=== PATIENT | female | born 1955 | race Caucasian/White ===

== ENCOUNTER 2021-05-06 12:46 | Outpatient (CLI) | payer OTHER, SELFPAY ==
--- NOTE | 2021-05-06 13:11 | MM_ITS ---
WS: [id number] BILATERAL DIGITAL SCREENING MAMMOGRAPHY WITH CAD CLINICAL INFORMATION: SCREENING HISTORY: Screening mammogram. No current complaints. COMPARISON: May 06, 2018 TECHNIQUE: Bilateral CC and MLO views. FINDINGS: The breasts are composed of heterogeneous fibroglandular density tissue, which can limit the detectio n of small underlying mass lesions. Punctate, clustered, and lucent centered calcifications. Eggshell calcifications. Vascular calcifications. Stable heterogeneous breast tissue upper outer breasts bila terally left greater than right. No suspicious mass, asymmetry, calcifications, or architectural dist ortion. No evidence of malignancy. MM/[place] [id number] IMPRESSION: BI-RADS: 2-Benign FOLLOW UP: 1 Year Follow-up Recommend return to annual screening mammography.
== END 2021-05-06 12:47 | disposition home or self-care (01) ==
LOC: RADSHAW 12:52
PROVIDERS: PCP Internal Medicine; Visit Provider Family Medicine
DX: Z12.31 Encounter for screening mammogram for malignant neoplasm of breast (principal)
CPT/HCPCS: 77067

== ENCOUNTER 2022-03-14 18:21 | Outpatient (CLI) | payer OTHER, SELFPAY ==
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
== END 2022-03-14 18:22 | disposition home or self-care (01) ==
PROVIDERS: PCP Internal Medicine; Visit Provider Internal Medicine
DX: S09.90XA Unspecified injury of head, initial encounter (principal); W22.8XXA Striking against or struck by other objects, initial encounter
CPT/HCPCS: 70260

== ENCOUNTER → 2022-10-31 08:40 | Outpatient (BNVA) | payer MEDICARE, OTHER, SELFPAY | PROVIDERS: PCP Internal Medicine; Visit Provider Orthopaedic Surgery | DX: S50.12XA Contusion of left forearm, initial encounter (principal); W01.0XXA Fall on same level from slipping, tripping and stumbling without subsequent striking against object, initial encounter | CPT/HCPCS: 73080; 99203 ==

== ENCOUNTER 2022-11-12 15:20 | Outpatient (RCR) | payer MEDICARE, OTHER, SELFPAY | END 2022-11-25 23:59 | disposition home or self-care (01) | LOC: SOT 15:20 | PROVIDERS: PCP Internal Medicine; Visit Provider Orthopaedic Surgery | DX: M25.622 Stiffness of left elbow, not elsewhere classified (principal) | CPT/HCPCS: 97022; 97110; 97166 ==

== ENCOUNTER 2022-11-26 06:00 | Outpatient (RCR) | payer MEDICARE, OTHER, SELFPAY | END 2022-12-24 23:59 | disposition home or self-care (01) | LOC: SOT 06:00 | PROVIDERS: PCP Internal Medicine; Visit Provider Orthopaedic Surgery | DX: M25.622 Stiffness of left elbow, not elsewhere classified (principal) | CPT/HCPCS: 97022; 97110; 99213 ==

== ENCOUNTER → 2023-07-12 13:50 | Outpatient (BNVA) | payer MEDICARE, OTHER, SELFPAY | PROVIDERS: PCP Internal Medicine; Visit Provider Family Medicine | DX: R05.9 Cough, unspecified (principal); J06.9 Acute upper respiratory infection, unspecified; Z20.822 Contact with and (suspected) exposure to COVID-19 | CPT/HCPCS: 87400; 87426 ==

== ENCOUNTER 2023-08-21 10:06 | Emergency (ER) | payer MEDICARE, OTHER, SELFPAY ==
[2023-08-21 10:24] VITALS: BP 212/104; PULSE 76; RESP 18; TEMP 36.8; O2SAT 99
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
[2023-08-21] MEDS: dexamethasone 10 mg/mL INJ IM (13:49)
[2023-08-21] MEDS: orphenadrine 30 mg/mL Inj 2 mL 60 MG IVP (13:49)
== END 2023-08-21 13:50 | disposition home or self-care (01) ==
PROVIDERS: Emergency Provider Family Medicine; PCP Internal Medicine
DX: M54.2 Cervicalgia (principal)
CPT/HCPCS: 96372; 96374; 99284; J1100; J2360

== ENCOUNTER → 2023-11-17 18:19 | Outpatient (BNVA) | payer MEDICARE, OTHER, SELFPAY | PROVIDERS: PCP Internal Medicine; Visit Provider Emergency Medicine | DX: Z20.828 Contact with and (suspected) exposure to other viral communicable diseases (principal) | CPT/HCPCS: 87400 ==

== ENCOUNTER → 2023-12-06 13:44 | Outpatient (BNVA) | payer MEDICARE, OTHER, SELFPAY | PROVIDERS: PCP Internal Medicine; Visit Provider Emergency Medicine | DX: R39.9 Unspecified symptoms and signs involving the genitourinary system (principal) | CPT/HCPCS: 81000; 87086 ==

== ENCOUNTER → 2024-03-02 13:56 | Outpatient (BNVA) | payer MEDICARE, OTHER, SELFPAY | PROVIDERS: PCP Internal Medicine; Visit Provider Family Medicine | DX: G89.29 Other chronic pain (principal); E03.9 Hypothyroidism, unspecified; M54.2 Cervicalgia; M54.9 Dorsalgia, unspecified | CPT/HCPCS: 80053; 84439; 84443; 85025 ==

== ENCOUNTER → 2024-03-11 10:34 | Outpatient (BNVA) | payer MEDICARE, OTHER, SELFPAY | PROVIDERS: PCP Internal Medicine; Referring Provider Family Medicine; Visit Provider Surgery | DX: K21.9 Gastro-esophageal reflux disease without esophagitis (principal); Z12.11 Encounter for screening for malignant neoplasm of colon | CPT/HCPCS: 99204 ==

== ENCOUNTER 2024-03-28 13:18 | Outpatient (CLI) | payer MEDICARE, OTHER, SELFPAY ==
--- NOTE | 2024-03-28 13:45 | MR_ITS ---
WS: [id number] MRI CERVICAL SPINE NONCONTRAST HISTORY: acute injury 08/20, failed PT COMPARISON: None available. Technique: Multiplanar, multisequence noncontrast imaging of the cervical spine. Very slight increase in the cervical lordosis. No acute fracture. There is increased T2 signal in the T1 vertebral body which is probably hemangioma. Facet joints are normally aligned. No marrow edema. Normal signal within the cord. Signal within the cervical cord is normal. Visualized posterior fossa is unremarkable. Craniocervical junction, C1 and C2 relationship, odontoid process and soft tissues are normal. C2-C3: Normal. C3-C4: Moderate RIGHT foraminal stenosis. There is probably a small disc osteophyte complex. The exac t cause of the stenosis is difficult to determine. Normal LEFT foramen. C4-C5: Normal. C5-C6: Normal. C6-C7: Normal. C7-T1: Normal. Paraspinal soft tissue are normal. MR/MR cervical spin wo con* [id number] IMPRESSION: 1. No acute cervical spine fracture. 2. No central stenosis. 3. Moderate RIGHT foraminal stenosis at C3-4. The exact cause is difficult to determine. There is probably facet disease and possible disc disease.
== END 2024-03-28 13:19 | disposition home or self-care (01) ==
PROVIDERS: PCP Family Medicine; Visit Provider Family Medicine
DX: M99.61 Osseous and subluxation stenosis of intervertebral foramina of cervical region (principal); M40.50 Lordosis, unspecified, site unspecified
CPT/HCPCS: 72141

== ENCOUNTER 2024-04-26 21:32 | Emergency (ER) | payer MEDICARE, OTHER, SELFPAY ==
[2024-04-26 21:44] VITALS: BP 214/101; PULSE 71; RESP 16; TEMP 36.6; O2SAT 99
[2024-04-26 21:54] VITALS: BP 185/100; PULSE 78; O2SAT 97
--- NOTE | 2024-04-26 22:40 | XRR_ITS ---
PROCEDURE INFORMATION: Exam: XR Chest Exam date and time: 04/26/2024 10:46 PM Age: 68 years old Clinical indication: Angina; Additional info: Epigastric pain TECHNIQUE: Imaging protocol: Radiologic exam of the chest. Views: 1 view. COMPARISON: CR XR ribs RT mn 3V w CXR1V [id number] 09/07/2023 11:47 AM FINDINGS: Lungs: Unremarkable. No consolidation. Pleural spaces: Unremarkable. No pleural effusion. No pneumothorax. Heart/Mediastinum: Unremarkable. No cardiomegaly. Bones/joints: Unremarkable. XR/XR chest 1V portable [id number] IMPRESSION: No acute findings.
--- NOTE | 2024-04-26 22:40 | ECG_ITS ---
[facility] Test Date: 2024-04-26 Pat Name: Elicia Jaquez Department: Room: Gender: Female [employer] Hunter: : 1955 Requested By: Milan Chau Order Number: [id number] Lazaro MD: Ana Zamora M.D. Measurements Intervals [place] Rate: 65 P: 57 FL: 149 QRS: 37 QRSD: 73 T: 50 QT: 377 QTc: 394 Interpretive Statements SINUS RHYTHM POSSIBLE LEFT ATRIAL ENLARGEMENT [-0.1mV P-WAVE IN V1/V2] No previous ECG available for comparison Electronically Signed On 04-27-2024 6:27:47 CDT by Ana Zamora M.D. [email or web address]
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
[2024-04-26] MEDS: ondansetron 2 mg/ML SDV 2 mL 4 MG IVP (23:25)
[2024-04-26] MEDS: sodium chloride 0.9% 1,000 ML 999 ML IV (23:26)
[2024-04-26 23:32] VITALS: BP 188/90; PULSE 72; O2SAT 98
[2024-04-26 23:45] LABS: Basophils % 0.3 %; Eosinophils # 0.1 10^3/uL (0.0-0.8); Eosinophils % 0.8 %; Hematocrit 43.7 % (36-47); Lymphocytes # 2.6 10^3/uL (0.8-4.8); Lymphocytes % 20.9 %; Mean Corpuscular HGB Conc 33.4 g/dL (30-55); Mean Corpuscular Hemoglobin 32.1 pg (27-33); Mean Platelet Volume 10.3 fL (7.4-10.4); Monocytes # 0.9 10^3/uL (0.2-0.9); Monocytes % 7.4 %; Neutrophils # 8.52 10^3/uL (1.8-7.7); Neutrophils % 69.5 %; Nucleated Red Blood Cells % 0 %; Platelet Count 241 10^3/cmm (157-399); Red Blood Count 4.55 10^6/uL (3.85-5.65); Red Cell Distribution Width 12.5 % (12.1-15.1); White Blood Count 12.26 10^3/uL (3.29-11.43)
[2024-04-26 23:47] LABS: Charge for UA Resulting for Rev
[2024-04-27 00:02] LABS: Troponin(5th) Baseline 26 ng/L (0-10)
[2024-04-27 00:03] LABS: Alanine Aminotransferase 29 U/L (0-33); Albumin Level 4.6 g/dL (3.5-5.2); Alkaline Phosphatase 114 U/L (35-105); Aspartate Amino Transferase 18 U/L (0-32); Blood Urea Nitrogen 18 mg/dL (8-23); Calcium 8.9 mg/dL (8.5-10.5); Carbon Dioxide 25 mmol/L (22-29); Chloride 101 mmol/L (98-107); Creatinine Clr Calc Pharmacy 46.0655; Globulin 2.1 g/dL (1.3-4.6); Glomerular Filtration Rate 83.7 mL/min (90-130); Glucose 107 mg/dL (65-115); Lipase 38 U/L (13-60); Osmolality Calculated 288 mOsm/kg (285-295); Sodium 138 mmol/L (136-145); Total Bilirubin 0.4 mg/dL (0.15-1.2); Total Protein 6.7 g/dL (6.6-8.7)
[2024-04-27 00:07] LABS: Bilirubin Urine Negative (Negative); Blood Urine Negative (Negative); Glucose Urine UA Negative (Normal); Ketones Urine Negative (Negative); Leukocyte Esterase Urine Negative (Negative); Nitrate Urine Negative (Negative); Protein Urine Negative (Negative); Specific Gravity, Urine 1.008 (1.005-1.030); Urine Appearance Clear (CLEAR); Urine Color Yellow (Yellow); Urobilinogen Urine 0.2 mg/dL (Negative)
[2024-04-27] MEDS: cloNIDine 0.1 mg Tablet PO (00:39)
[2024-04-27] MEDS: lidocaine 2% viscous 15 ML, aluminum-mag hydrox-simethicon 30 ML, sucralfate oral liq 1 GM PO (00:41)
--- NOTE | 2024-04-27 00:46 | ECG_ITS ---
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 Measurements Intervals [place] Rate: 65 P: 54 LA: 146 QRS: 27 QRSD: 86 T: 49 QT: 382 QTc: 399 Interpretive Statements SINUS RHYTHM Poor R wave progression POSSIBLE LEFT ATRIAL ENLARGEMENT [-0.1mV P-WAVE IN V1/V2] MODERATE ST DEPRESSION [0.05+ mV ST DEPRESSION] Compared to ECG 04/26/2024 23:09:41 ST (T wave) deviation now present Electronically Signed On 04-27-2024 6:38:13 CDT by Ana Zamora M.D. [id number]
[2024-04-27 01:03] VITALS: BP 180/93; PULSE 77; O2SAT 98
--- NOTE | 2024-04-27 01:03 | CTR_ITS ---
PROCEDURE INFORMATION: Exam: CT Abdomen And Pelvis With Contrast Exam date and time: 04/27/2024 1:37 AM Age: 68 years old Clinical indication: Abdominal pain; Epigastric; Prior surgery; Surgery date: 6+ months; Surgery type: Appy, stomach, c section; Additional info: Epigastric pain/elevated BP TECHNIQUE: Imaging protocol: Computed tomography of the abdomen and pelvis with contrast. Radiation optimization: All CT scans at this facility use at least one of these dose optimization techniques: automated exposure control; mA and/or kV adjustment per patient size (includes targeted exams where dose is matched to clinical indication); or iterative reconstruction. Contrast material: OMNIPAQUE 350; Contrast volume: 80 ml; Contrast route: INTRAVENOUS (IV); COMPARISON: CR XR hip RT 2-3V wo/w pel* [id number] 10/21/2023 8:43 AM RADIATION DOSE METRICS: Total DLP (mGy-cm): 292.15 FINDINGS: Liver: Normal. No mass. Gallbladder and biliary ducts: Normal. No calcified stones. No ductal dilation. Pancreas: Normal. No ductal dilation. Spleen: Normal. No splenomegaly. Adrenal glands: Normal. No mass. Kidneys and ureters: Normal. No hydronephrosis. Stomach and bowel: Unremarkable. No obstruction. No mucosal thickening. Appendix: The appendix is not visualized but there are no secondary signs of acute appendicitis. Intraperitoneal space: Unremarkable. No free air. No significant fluid collection. Vasculature: Unremarkable. No abdominal aortic aneurysm. Lymph nodes: Unremarkable. No enlarged lymph nodes. Urinary bladder: Unremarkable as visualized. Reproductive: Unremarkable as visualized. Bones/joints: Unremarkable. No acute fracture. Soft tissues: Unremarkable. CT/CT abdomen pelvis w con* [id number] IMPRESSION: 1. No bowel obstruction or inflammatory process associated with the bowel. 2. No free air or significant free fluid in the abdomen or pelvis. 3. The appendix is not visualized but there are no secondary signs of acute appendicitis.
[2024-04-27] MEDS: iohexol 350 mg/mL 500 mL Btl (per mL) IV (01:47)
[2024-04-27 01:55] VITALS: BP 134/76; O2SAT 97
[2024-04-27 02:59] VITALS: BP 153/86; PULSE 69; O2SAT 98
[2024-04-27 02:59] LABS: Troponin 5 2HR 27.43 ng/L (0-10); Troponin 5 2HR Delta 1.43 ABS# (0-10)
[2024-04-27 03:41] VITALS: BP 146/88; PULSE 88; O2SAT 100
== END 2024-04-27 03:44 | disposition home or self-care (01) ==
PROVIDERS: Emergency Provider Physician Assistant; PCP Family Medicine
DX: K21.9 Gastro-esophageal reflux disease without esophagitis (principal); Z79.82 Long term (current) use of aspirin; L53.9 Erythematous condition, unspecified
CPT/HCPCS: 36415; 71045; 74177; 80053; 81003; 81015; 83690; 84484; 85025; 93005; 96361; 96374; 99285; J2405; J7030; Q9967

== ENCOUNTER 2024-06-02 14:25 | Outpatient (CLI) | payer MEDICARE, OTHER, SELFPAY ==
--- NOTE | 2024-06-02 14:29 | MR_ITS ---
WS: [id number] MRI RIGHT SHOULDER NONCONTRAST TECHNIQUE: Sagittal T2, coronal T1, T2 and proton density imaging. Axial gradient PDE imaging. CLINICAL INFORMATION: R SHOULDER PAIN/WEAKNESS OF R SHOULDER COMPARISON: None. 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 Edema in the distal clavicle. Slight i mpingement distal supraspinatus. Chronic thinning of the distal supraspinatus and infraspinatus. Tiny intrasubstance tear distal supraspinatus. Tiny insertional tear distal infraspinatus. Small amount o f subacromial subdeltoid fluid. Biceps tendon appears intact within the bicipital groove. Normal bone marrow signal in the humerus and glenoid. Intra-articular biceps tendon appears intact. B iceps labral anchor appears intact. Moderate degenerative narrowing of the glenohumeral articulation. Normal teres minor. The subscapularis tendon appears intact. MR/MR shoulder RT wo con* [id number] IMPRESSION: 1. 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 Slight impin gement on the distal supraspinatus. Edema in the distal clavicle. 2. Tendinopathy supraspinatus and infraspinatus. 3. Tiny intrasubstance tear distal supraspinatus. 4. Tiny insertional tear infraspinatus. 5. Biceps tendon appears intact within the bicipital groove.
== END 2024-06-02 14:26 | disposition home or self-care (01) ==
LOC: RAD 14:26
PROVIDERS: PCP Family Medicine; Visit Provider Student in an Organized Health Care Education/Training Program
DX: M19.011 Primary osteoarthritis, right shoulder (principal); R29.898 Other symptoms and signs involving the musculoskeletal system; R60.0 Localized edema
CPT/HCPCS: 73221

== ENCOUNTER 2024-07-25 09:22 | Outpatient (CLI) | payer MEDICARE, OTHER, SELFPAY ==
--- NOTE | 2024-07-25 09:28 | CT_ITS ---
WS: [id number] CTA HEAD AND NECK TECHNIQUE: Contrast enhanced CTA of the head and neck with coronal and sagittal reformatted images an d maximum intensity projection (MIP) images. NASCET criteria utilized. CLINICAL INFORMATION: UNSPECIFIED HEADACHE COMPARISON: None. DLP: 1082.[address] scans at [facility] use at least one of these dose optimization techniques: automated e xposure control; mA and/or kV adjustment per patient size (includes targeted exams where dose is matc hed to clinical indication); or iterative reconstruction. FINDINGS: No evidence of acute hemorrhage or mass effect. Small retention cyst or polyp LEFT frontoet hmoidal recess. Normal posterior nasopharynx. Mastoid air cells are well aerated. RIGHT: RIGHT common carotid artery is patent. No significant RIGHT ICA stenosis. RIGHT ICA is patent to the skull base. Minimal cavernous carotid calcification. LEFT: LEFT common carotid artery is patent. No significant LEFT ICA stenosis. LEFT ICA is patent to t he skull base. LEFT dominant vertebral artery. Smaller but patent RIGHT vertebral artery. Proximal basilar artery is patent. Fibrosis in the lung apices. Proximal subclavian arteries are patent. INTRACRANIAL CTA: Proximal basilar artery is patent. Normal vascularity to the VINYL TOP INSTALLER territory bilaterally. Both ICAs are patent at the skull base. Patent anterior communicating artery. Normal vascularity to t he SOBEIDA territory. Normal vascularity to the MCA territory bilaterally. CT/CT angio headneck* [id number] IMPRESSION: 1. No evidence intracranial hemorrhage or mass effect. 2. No significant cervical stenosis. 3. Minimal cavernous carotid calcification. 4. No flow-limiting intracranial stenosis.
[2024-07-25 10:33] LABS: Blood Urea Nitrogen 18 mg/dL (8-23); Glomerular Filtration Rate 62.6 mL/min (90-130)
[2024-07-25] MEDS: iohexol 350 mg/mL 500 mL Btl (per mL) IV (10:36)
== END 2024-07-25 09:23 | disposition home or self-care (01) ==
LOC: RAD 09:24
PROVIDERS: PCP Family Medicine; Visit Provider Student in an Organized Health Care Education/Training Program
DX: R51.9 Headache, unspecified (principal); J34.1 Cyst and mucocele of nose and nasal sinus; J84.10 Pulmonary fibrosis, unspecified
CPT/HCPCS: 70496; 70498; 82565; 84520

== ENCOUNTER → 2025-01-08 14:23 | Outpatient (BNVA) | payer MEDICARE, OTHER, SELFPAY | PROVIDERS: PCP Family Medicine; Visit Provider Emergency Medicine | DX: M54.50 Low back pain, unspecified (principal); R10.9 Unspecified abdominal pain | CPT/HCPCS: 81000; 87086 ==

== ENCOUNTER → 2025-02-03 14:50 | Outpatient (BNVA) | payer MEDICARE, OTHER, SELFPAY | PROVIDERS: PCP Family Medicine; Visit Provider Family Medicine | DX: I10 Essential (primary) hypertension (principal); Z12.39 Encounter for other screening for malignant neoplasm of breast | CPT/HCPCS: 80053; 80061; 84439; 84443; 85025 ==

== ENCOUNTER 2025-04-10 08:36 | Outpatient (CLI) | payer MEDICARE, OTHER, SELFPAY ==
--- NOTE | 2025-04-10 09:00 | MM_ITS ---
WS: [id number] BILATERAL SCREENING DIGITAL TOMOSYNTHESIS MAMMOGRAM WITH CAD HISTORY: screening COMPARISON: 05/06/2021, 04/09/2018 Bilateral CC and MLO views with tomosynthesis and synthetic mammography submitted. Computer aided detection analyzed. Breast composition: The breasts are heterogeneously dense, which may obscure small masses. No suspicious masses, microcalcifications or architectural distortion. Stable asymmetries and calcifications within each breast. MM/MM scr tomosynthesis [id number] IMPRESSION: BI-RADS: 2 - Benign. FOLLOW UP: 1 Year Follow-up
== END 2025-04-10 08:37 | disposition home or self-care (01) ==
LOC: RAD 08:37
PROVIDERS: PCP Family Medicine; Visit Provider Family Medicine
DX: Z12.31 Encounter for screening mammogram for malignant neoplasm of breast (principal); R92.333 Mammographic heterogeneous density, bilateral breasts
CPT/HCPCS: 77063; 77067

== ENCOUNTER → 2025-07-24 15:22 | Outpatient (BNVA) | payer MEDICARE, OTHER, SELFPAY | PROVIDERS: PCP Family Medicine; Visit Provider Family Medicine | DX: R39.9 Unspecified symptoms and signs involving the genitourinary system (principal) | CPT/HCPCS: 81000 ==